=== PATIENT | female | born 1995 | race Caucasian/White ===

== ENCOUNTER 2018-03-14 11:35 | Day surgery (SDC) | payer OTHER | END 2018-03-14 14:20 | disposition home or self-care (01) | LOC: DS 11:35 | PROVIDERS: ATTEND Family Medicine | DX: E83.119 Hemochromatosis, unspecified (principal) | CPT/HCPCS: 36415; 85014; 85018; 99195 ==

== ENCOUNTER 2018-08-08 11:27 | Day surgery (SDC) | payer OTHER ==
[2018-08-08 12:46] LABS: Hematocrit 39.7 % (36.0-45.0)
[2018-08-08 13:12] LABS: Ferritin 14.2 ng/mL (8-388)
== END 2018-08-08 15:35 | disposition home or self-care (01) ==
LOC: DS 11:27
PROVIDERS: ATTEND Family Medicine
DX: E83.110 Hereditary hemochromatosis (principal)
CPT/HCPCS: 36415; 82728; 83540; 85014; 85018; 99195